=== PATIENT | male | born 1955 | race Caucasian/White ===

== ENCOUNTER → 2019-01-20 | Day surgery (SDC) | payer BC ==
[2019-01-16 09:46] LABS: BASOPHILS % 0.2 % (0.0-1.0); HEMATOCRIT 41.4 % (38.2-49.6); HEMOGLOBIN 13.8 g/dL (14.0-18.0); LYMPHOCYTES # (AUTO) 1.3 (1.0-3.2); LYMPHOCYTES % 25.9 % (18.0-39.1); MEAN CORPUSCULAR HEMOGLOBIN 31.4 pg (28-32); MEAN CORPUSCULAR HGB CONC 33.3 g/dL (31-35); MEAN CORPUSCULAR VOLUME 94.1 fL (81-99); MONOCYTES # (AUTO) 0.4 (0.2-0.8); MONOCYTES % 8.2 % (4.4-11.3); NEUTROPHILS # (AUTO) 3.2 (2.1-6.9); NEUTROPHILS % 65.5 % (38.7-80.0); PLATELET COUNT 208 x10e3/uL (140-360); RED CELL DISTRIBUTION WIDTH 12.3 % (11.7-14.4)
[~2019-01-20] MED LIST: AMBIEN PO; ASPIR 8181 MG; ATORVASTATIN PO; CLOPIDOGREL75 MG PO; FENTANYL CITRATE/PF 100MCG/2 ML INJ ONE; METOPROLOL TART50 MG PO; MIDAZOLAM HCL 2 MG/2 ML VIAL ONE; PROPOFOL IV EMULSION 10 MG/ML 50 ML VIAL ONE; TAMSULOSIN HCL0.4 MG
--- OUTSIDE RECORDS SUMMARY | 2019-01-20 09:09 | XMS REPORT | Summary of Care ---
Author Author [facility] Organization [facility] Address Unknown Phone Unavailable Encounter TAYLOR Guzmán(YISSEL) [id number] Date(s): 07/05/17 - 07/06/17 [facility] [address] [place] [address]- [phone] Discharge Disposition: Home or Self Care Attending Physician: Monika Phan MD Admitting Physician: Monika Phan MD Referring Physician: Yasir Zamarripa MD Vital Signs 1 2 3 Most recent to oldest [Reference Range]: 173.36 cm (07/02/17 9:30 AM) Height 98 DegF (07/06/17 12:00 AM) 98.3 DegF (07/05/17 7:00 PM) 98.7 DegF (07/05/17 4:00 PM) Temperature Oral [96.4-99.1 DegF] 106/61 mmHg (07/06/17 9:00 AM) 123/66 mmHg (07/06/17 8:00 AM) 130/77 mmHg (07/06/17 7:00 AM) Blood Pressure [90-140/60-90 mmHg] 11 BRMIN *LOW* (07/06/17 10:51 AM) 15 BRMIN (07/06/17 10:00 AM) 14 BRMIN (07/06/17 9:00 AM) Respiratory Rate [14-20 BRMIN] 85 bpm (07/05/17 7:20 AM) 76 bpm (07/02/17 9:00 AM) Peripheral Pulse Rate [60-100 bpm] 91 kg (07/06/17 10:56 AM) 90.727 kg (07/02/17 9:30 AM) Weight 30.19 m2 (07/02/17 9:30 AM) Body Mass Index Problem List Condition Effective Dates Status Health Status Informant CAD (coronary artery Active disease)(Confirmed) Chest Active pain(Confirmed) Shortness of Active breath(Confirmed) HTN Active (hypertension)(Confi rmed) Arthritis(Confirmed) Active Enlarged Active prostate(Confirmed) Sleep Active apnea(Confirmed) Allergies, Adverse Reactions, Alerts Substance Reaction Severity Status finasteride Active Medications acetaminophen 650 mg, 2 tab, Route: PO, Drug form: TAB, Q4H, Dosing Weight 90.727, kg, PRN [place] 1-3/Temp > 100.4 F, Start date: 07/05/17 10:01:00 CDT, Duration: 30 day, Stop date: 08/04/17 10:00:00 CDT Notes: Do not exceed 4 gm/day. (Same as: Tylenol) Start Date: 07/05/17 Stop Date: 07/05/17 Status: Discontinued acetaminophen-hydrocodone 325 mg-5 mg oral tablet 1 tab, PO, Q4-6H, PRN Pain, X 5 day, # 24 tab, 0 Refill(s), given to patient Start Date: 07/06/17 Stop Date: 07/11/17 Status: Ordered acetaminophen-hydrocodone 325 mg-5 mg oral tablet 2 tab, Route: PO, Drug Form: TAB, Dosing Weight 90.727, kg, Q4H, PRN Pain Score 4-6, Start date: 07/05/17 10:01:00 CDT, Duration: 30 day, Stop date: 08/04/17 10 :00:00 CDT Notes: (Same as: [place] 325/5) Do not exceed 4gm/day of acetaminophen. Start Date: 07/05/17 Stop Date: 07/06/17 Status: Discontinued acetaminophen-hydrocodone 325 mg-5 mg oral tablet 1 tab, Route: PO, Drug Form: TAB, Dosing Weight 90.727, kg, Q4H, PRN Pain Score 1-3, Start date: 07/05/17 10:01:00 CDT, Duration: 30 day, Stop date: 08/04/17 10 :00:00 CDT Notes: (Same as: [place] 325/5) Do not exceed 4gm/day of acetaminophen. Start Date: 07/05/17 Stop Date: 07/06/17 Status: Discontinued aspirin 81 mg tablet, enteric coated 81 mg, 1 tab, Route: PO, Drug form: ECTAB, Daily, Dosing Weight 90.727, kg, Star t date: 07/06/17 9:00:00 CDT, Duration: 30 day, Stop date: 08/04/17 9:00:00 CDT Notes: Do not crush or chew.(Same As: Ecotrin) Start Date: 07/06/17 Stop Date: 07/06/17 Status: Discontinued atorvastatin 40 mg, 1 tab, Route: PO, Drug form: TAB, Bedtime, Dosing Weight 90.727, kg, Star t date: 07/05/17 21:00:00 CDT, Duration: 30 day, Stop date: 08/03/17 21:00:00 CD T Notes: (Same as: Lipitor) Start Date: 07/05/17 Stop Date: 07/06/17 Status: Discontinued Brilinta (ticagrelor) 90 mg, 1 tab, Route: PO, Drug form: TAB, BID, Dosing Weight 90.727, kg, Start da te: 07/05/17 17:00:00 CDT, Duration: 30 day, Stop date: 08/04/17 9:00:00 CDT Notes: (Same as: Brilinta) Start Date: 07/05/17 Stop Date: 07/06/17 Status: Discontinued Brilinta (ticagrelor) 90 mg oral tablet 90 mg=1 tab, PO, BID, 0 Refill(s) Start Date: 07/02/17 Status: Ordered calcium carbonate 500 mg (200 mg elemental calcium) oral tablet 500 mg, 1 tab, Route: PO, Drug form: CHEWTAB, PRN, Dosing Weight 90.727, kg, PRN Abnormal Lab Result, FOR ICU USE ONLY, Start date: 07/05/17 16:40:00 CDT, Durat ion: 30 day, Stop date: 08/04/17 16:39:00 CDT Notes: (Same As: Tums)Calcium Carbonate 500 zp=413 mg elemental calcium Dose=_ mg calcium carbonate ( mg elemental calcium) Start Date: 07/05/17 Stop Date: 07/06/17 Status: Discontinued calcium carbonate 500 mg (200 mg elemental calcium) oral tablet 1,000 mg, 2 tab, Route: PO, Drug form: CHEWTAB, PRN, Dosing Weight 90.727, kg, P RN Abnormal Lab Result, FOR ICU USE ONLY, Start date: 07/05/17 16:40:00 CDT, Dur ation: 30 day, Stop date: 08/04/17 16:39:00 CDT Notes: (Same As: Tums)Calcium Carbonate 500 aq=879 mg elemental calcium Dose=_ mg calcium carbonate ( mg elemental calcium) Start Date: 07/05/17 Stop Date: 07/06/17 Status: Discontinued calcium gluconate + sodium chloride 0.9% INJ 50 mL 1 gm, 10 mL, Route: IVPB, PRN, Dosing Weight 90.727, kg, PRN Abnormal Lab Result , Start date: 07/05/17 16:40:00 CDT, Duration: 30 day, Stop date: 08/04/17 16:39 :00 CDT, FOR ICU USE ONLY Notes: WASTE: F/P - Sink; E - Municipal Trash Bin Start Date: 07/05/17 Stop Date: 07/06/17 Status: Discontinued ceFAZolin (ANES) Route: IV, Drug form: INJ, ONCE, Stop date: 07/05/17 9:12:00 CDT Start Date: 07/05/17 Stop Date: 07/05/17 Status: Completed ceFAZolin (SCIP) + sodium chloride 0.9% 100 mL INJ (for IV set) 100 mL 2 gm, Route: IVPB, Q8H, Dosing Weight 90.727, kg, Start date: 07/05/17 16:00:00 CDT, Duration: 3 doses or times, Stop date: 07/06/17 8:00:00 CDT, ABX Indication : Surgical Prophylaxis Notes: (Same As: Anctimur, Wingfzol) MEDICATION WASTE Product Size: 1000 mgP roduct Wasted: ___ mg Start Date: 07/05/17 Stop Date: 07/06/17 Status: Completed Cepacol Sore Throat Chau Sugar Free 15 mg-3.6 mg mucous membrane lozenge 1 lozenge, Route: MUCOUS MEM, Drug Form: NICKO, Dosing Weight 90.727, kg, Q2H, PRN Sore Throat, Start date: 07/05/17 11:10:00 CDT, Duration: 30 day, Stop date: 11:09:00 CDT Notes: Same as: Cepacol Start Date: 07/05/17 Stop Date: 07/06/17 Status: Discontinued fentaNYL (ANES) Route: IV, Drug form: INJ, ONCE, Stop date: 07/05/17 9:12:00 CDT Start Date: 07/05/17 Stop Date: 07/05/17 Status: Completed heparin (ANES) Route: IV, Drug form: INJ, ONCE, Stop date: 07/05/17 10:00:00 CDT Start Date: 07/05/17 Stop Date: 07/05/17 Status: Completed hydrALAZINE 10 mg, 0.5 mL, Route: IVP, Drug form: INJ, Q4H, Dosing Weight 90.727, kg, PRN Hy pertension, Start date: 07/05/17 11:10:00 CDT, Duration: 30 day, Stop date: 07/26 11:09:00 CDT Notes: (Same as: Apresoline)Push over 5 minutes Start Date: 07/05/17 Stop Date: 07/06/17 Status: Discontinued ketOROLAC (ANES) IV, ONCE Start Date: 07/05/17 Stop Date: 07/05/17 Status: Completed Lactated Ringers 1,000 mL 1,000 mL, Rate: 50 ml/hr, Infuse over: 20 hr, Route: IV, Dosing Weight 90.727 kg , Total Volume: 1,000, Start date: 07/05/17 10:01:00 CDT, Duration: 30 day, Stop date: 08/04/17 10:00:00 CDT Start Date: 07/05/17 Stop Date: 07/06/17 Status: Discontinued Lactated Ringers 1,000 mL 1,000 mL, Rate: 25 ml/hr, Infuse over: 40 hr, Route: IV, Dosing Weight 90.727 kg , Total Volume: 1,000, Start date: 07/05/17 7:28:00 CDT, Duration: 30 day, Stop date: 08/04/17 7:27:00 CDT Start Date: 07/05/17 Stop Date: 07/05/17 Status: Discontinued lidocaine (ANES) Route: IV, Drug form: INJ, ONCE, Stop date: 07/05/17 9:12:00 CDT Start Date: 07/05/17 Stop Date: 07/05/17 Status: Completed LR 1000 mL INJ (ANES) Route: IV, Total Volume: 1,000, Start date: 07/05/17 8:12:00 CDT, Stop date: 10/11 9:12:00 CDT Start Date: 07/05/17 Stop Date: 07/05/17 Status: Completed magnesium oxide 800 mg, 2 tab, Route: PO, Drug form: TAB, PRN, Dosing Weight 90.727, kg, PRN Abn ormal Lab Result, FOR ICU USE ONLY, Start date: 07/05/17 16:40:00 CDT, Duration: 30 day, Stop date: 08/04/17 16:39:00 CDT Notes: (Same as: Mag-Ox 400)Magnesium oxide [id number] elemental magnesiumDose= ____mg magnesium oxide (___mg elemental magnesium) Start Date: 07/05/17 Stop Date: 07/06/17 Status: Discontinued magnesium sulfate 2 gm, 50 mL, Route: IVPB, Drug form: INJ, PRN, Dosing Weight 90.727, kg, PRN Abn ormal Lab Result, Start date: 07/05/17 16:40:00 CDT, Duration: 30 day, Stop date : 08/04/17 16:39:00 CDT, FOR ICU USE ONLY Notes: WASTE: F/P - Sink; E - Municipal Trash Bin Start Date: 07/05/17 Stop Date: 07/06/17 Status: Discontinued midazolam (ANES) Route: IV, Drug form: SOLN, ONCE, Stop date: 07/05/17 8:47:00 CDT Start Date: 07/05/17 Stop Date: 07/05/17 Status: Completed morphine Sulfate 4 mg, 1 mL, Route: IVP, Drug form: INJ, Q4H, Dosing Weight 90.727, kg, PRN Pain Score 7-10, Start date: 07/05/17 10:01:00 CDT, Duration: 30 day, Stop date: 07/26 10:00:00 CDT Notes: (Same as:MORPhine Sulfate) Start Date: 07/05/17 Stop Date: 07/06/17 Status: Discontinued morphine Sulfate 2 mg, 1 mL, Route: IVP, Drug form: INJ, Q2H, Dosing Weight 90.727, kg, PRN Pain Score 4-6, Start date: 07/05/17 10:01:00 CDT, Duration: 30 day, Stop date: 08/04 10:00:00 CDT Notes: (Same as:MORPhine Sulfate) Start Date: 07/05/17 Stop Date: 07/06/17 Status: Discontinued multivitamin 1 tab, Route: PO, Drug Form: TAB, Dosing Weight 90.727, kg, Daily, Start date: 0 07/06/17 9:00:00 CDT, Duration: 30 day, Stop date: 08/04/17 9:00:00 CDT Notes: (Same as:One Tab Daily, Tab-A-Nellie + Beta Carotene) Give with food. Start Date: 07/06/17 Stop Date: 07/06/17 Status: Discontinued mupirocin topical 1 appl, Route: NASAL, Q12H, Drug form: OINT, Start date: 07/05/17 21:00:00 CDT, Duration: 5 day, Stop date: 07/10/17 9:00:00 CDT, MRSA Decolonization Start Date: 07/05/17 Stop Date: 07/06/17 Status: Discontinued ondansetron 4 mg, 2 mL, Route: IVP, Drug form: INJ, Q8H, Dosing Weight 90.727, kg, PRN Nause a & Vomiting, Start date: 07/05/17 10:01:00 CDT, Duration: 30 day, Stop date: 08/04/17 10:00:00 CDT Notes: (Same as: Betito) MEDICATION WASTE Product Size: 4 mgProduct Was eliza: ___ mg Start Date: 07/05/17 Stop Date: 07/06/17 Status: Discontinued ondansetron (ANES) Route: IV, Drug form: INJ, ONCE, Stop date: 07/05/17 9:17:00 CDT Start Date: 07/05/17 Stop Date: 07/05/17 Status: Completed potassium chloride 20 mEq, 15 mL, Route: NJ, Drug form: LIQ, PRN, Dosing Weight 90.727, kg, PRN Abn ormal Lab Result, Start date: 07/05/17 16:40:00 CDT, Duration: 30 day, Stop date : 08/04/17 16:39:00 CDT, FOR ICU USE ONLY Notes: (Same as: Potassium Chloride) Start Date: 07/05/17 Stop Date: 07/06/17 Status: Discontinued potassium chloride 20 mEq, 1 tab, Route: PO, Drug form: ERTAB, PRN, Dosing Weight 90.727, kg, PRN A bnormal Lab Result, Start date: 07/05/17 16:40:00 CDT, Duration: 30 day, Stop da te: 08/04/17 16:39:00 CDT, FOR ICU USE ONLY Notes: (Same as: K-Dur 20)"Do Not Crush" With food and full glass of water Start Date: 07/05/17 Stop Date: 07/06/17 Status: Discontinued potassium chloride 10 mEq, 100 mL, Route: IVPB, Drug form: INJ, PRN, Dosing Weight 90.727, kg, PRN Abnormal Lab Result, Via peripheral line, Start date: 07/05/17 16:40:00 CDT, Dur ation: 30 day, Stop date: 08/04/17 16:39:00 CDT, FOR ICU USE ONLY Notes: Infuse at a rate of 10 mEq/hr.(Same as: KCL) Start Date: 07/05/17 Stop Date: 07/06/17 Status: Discontinued potassium chloride 20 mEq, 100 mL, Route: IVPB, Drug form: INJ, PRN, Dosing Weight 90.727, kg, PRN Abnormal Lab Result, Via central line, Start date: 07/05/17 16:40:00 CDT, Durati on: 30 day, Stop date: 08/04/17 16:39:00 CDT, FOR ICU USE ONLY Notes: (Same as: KCL) Infuse no faster than 10 mEq/hr if given peripherally. Start Date: 07/05/17 Stop Date: 07/06/17 Status: Discontinued potassium phosphate + sodium chloride 0.9% INJ 250 mL 30 mmol, 10 mL, Route: IVPB, PRN, Dosing Weight 90.727, kg, PRN Abnormal Lab Res ult, Start date: 07/05/17 16:40:00 CDT, Duration: 30 day, Stop date: 08/04/17 16 :39:00 CDT, FOR ICU USE ONLY Notes: (Same as: K Phosphate.) 1 mMol phoshate has 1.47 mEq potassium Infuse o mi 4 hours Start Date: 07/05/17 Stop Date: 07/06/17 Status: Discontinued potassium phosphate + sodium chloride 0.9% INJ 250 mL 45 mmol, 15 mL, Route: IVPB, PRN, Dosing Weight 90.727, kg, PRN Abnormal Lab Res ult, Start date: 07/05/17 16:40:00 CDT, Duration: 30 day, Stop date: 08/04/17 16 :39:00 CDT, FOR ICU USE ONLY Notes: (Same as: K Phosphate.) 1 mMol phoshate has 1.47 mEq potassium Infuse o mi 4 hours Start Date: 07/05/17 Stop Date: 07/06/17 Status: Discontinued potassium phosphate + sodium chloride 0.9% INJ 250 mL 15 mmol, 5 mL, Route: IVPB, PRN, Dosing Weight 90.727, kg, PRN Abnormal Lab Resu lt, Start date: 07/05/17 16:40:00 CDT, Duration: 30 day, Stop date: 08/04/17 16: 39:00 CDT, FOR ICU USE ONLY Notes: (Same as: K Phosphate.) 1 mMol phoshate has 1.47 mEq potassium Infuse o mi 4 hours Start Date: 07/05/17 Stop Date: 07/06/17 Status: Discontinued potassium phosphate-sodium phosphate 250 mg-280 mg-160 mg oral powder for recons titution 2 pkt, Route: PO, Drug Form: PDR/REC, Dosing Weight 90.727, kg, PRN, PRN Abnorma l Lab Result, FOR ICU USE ONLY, Start date: 07/05/17 16:40:00 CDT, Duration: 30 day, Stop date: 08/04/17 16:39:00 CDT Notes: (Same as: Phos-NaK) Each 1.5 gm pkt has 250mg phosphorous. Mix w/2.5oz w ater and stir. Start Date: 07/05/17 Stop Date: 07/06/17 Status: Discontinued propofol (ANES) Route: IV, Drug form: INJ, ONCE, Stop date: 07/05/17 9:12:00 CDT Start Date: 07/05/17 Stop Date: 07/05/17 Status: Completed rocuronium (ANES) Route: IV, Drug form: INJ, ONCE, Stop date: 07/05/17 9:12:00 CDT Start Date: 07/05/17 Stop Date: 07/05/17 Status: Completed Saline Flush 0.9% 10 ml, Route: IVP, Drug Form: INJ, Dosing Weight 90.727, kg, PRN, PRN Line Flush , Start date: 07/05/17 11:09:00 CDT, Duration: 30 day, Stop date: 08/04/17 11:08 :00 CDT Notes: Same as: BD Posiflush Sterile Start Date: 07/05/17 Stop Date: 07/06/17 Status: Discontinued Saline Flush 0.9% 10 ml, Route: IVP, Drug Form: INJ, Dosing Weight 90.727, kg, Q12H, Start date: 0 07/05/17 21:00:00 CDT, Duration: 30 day, Stop date: 08/04/17 9:00:00 CDT Notes: Same as: BD Posiflush Sterile Start Date: 07/05/17 Stop Date: 07/06/17 Status: Discontinued sodium phosphate + sodium chloride 0.9% INJ 250 mL 30 mmol, 10 mL, Route: IVPB, PRN, Dosing Weight 90.727, kg, PRN Abnormal Lab Res ult, Start date: 07/05/17 16:40:00 CDT, Duration: 30 day, Stop date: 08/04/17 16 :39:00 CDT, FOR ICU USE ONLY Start Date: 07/05/17 Stop Date: 07/06/17 Status: Discontinued sodium phosphate + sodium chloride 0.9% INJ 250 mL 15 mmol, 5 mL, Route: IVPB, PRN, Dosing Weight 90.727, kg, PRN Abnormal Lab Resu lt, Start date: 07/05/17 16:40:00 CDT, Duration: 30 day, Stop date: 08/04/17 16: 39:00 CDT, FOR ICU USE ONLY Start Date: 07/05/17 Stop Date: 07/06/17 Status: Discontinued sodium phosphate + sodium chloride 0.9% INJ 250 mL 45 mmol, 15 mL, Route: IVPB, PRN, Dosing Weight 90.727, kg, PRN Abnormal Lab Res ult, Start date: 07/05/17 16:40:00 CDT, Duration: 30 day, Stop date: 08/04/17 16 :39:00 CDT, FOR ICU USE ONLY Start Date: 07/05/17 Stop Date: 07/06/17 Status: Discontinued tamsulosin 0.4 mg, 1 cap, Route: PO, Drug form: CAP, Daily, Dosing Weight 90.727, kg, Start date: 07/06/17 9:00:00 CDT, Duration: 30 day, Stop date: 08/04/17 9:00:00 CDT Notes: (Same As: Flomax) "Do Not Crush" Start Date: 07/06/17 Stop Date: 07/06/17 Status: Discontinued Tessalon Perles 200 mg, 2 cap, Route: PO, Drug form: CAP, TID, Dosing Weight 90.727, kg, PRN Cou gh, Start date: 07/05/17 11:10:00 CDT, Duration: 30 day, Stop date: 08/04/17 11: 09:00 CDT Notes: (Same As: Tessalon Perles)"Do Not Crush" Start Date: 07/05/17 Stop Date: 07/06/17 Status: Discontinued Toprol-XL 50 mg oral tablet, extended release 50 mg, 1 tab, Route: PO, Drug form: ERTAB, Daily, Start date: 07/06/17 9:00:00 C DT, Duration: 30 day, Stop date: 08/04/17 9:00:00 CDT Notes: (Same as: Toprol XL) May split tab, but do not crush. Start Date: 07/06/17 Stop Date: 07/06/17 Status: Discontinued Tylenol 650 mg, Route: PO, Drug form: TAB, Q6H, Dosing Weight 90.727, kg, PRN Pain Score 1-3, Start date: 07/05/17 11:10:00 CDT, Duration: 30 day, Stop date: 08/04/17 1 1:09:00 CDT Start Date: 07/05/17 Stop Date: 07/05/17 Status: Deleted Tylenol 650 mg, 2 tab, Route: PO, Drug form: TAB, Q6H, Dosing Weight 90.727, kg, PRN For Temp > 100.4 F, Start date: 07/05/17 11:10:00 CDT, Duration: 30 day, Stop date: 08/04/17 11:09:00 CDT Notes: Do not exceed 4 gm/day. (Same as: Tylenol) Start Date: 07/05/17 Stop Date: 07/06/17 Status: Discontinued Results BLOOD BANK RESULTS Most recent to 1 2 oldest [Reference Range]: ABO/Rh A POS *Unknown* (07/02/17 9:41 AM) Antibody Scrn Negative (07/02/17 9:41 AM) ELECTROLYTES Most recent to 1 2 oldest [Reference Range]: Sodium Lvl [135-145 142 mEq/L 141 mEq/L mEq/L] (07/06/17 5:04 AM) (07/02/17 9:38 AM) Potassium Lvl 4.1 mEq/L 4.0 mEq/L [3.5-5.1 mEq/L] (07/06/17 5:04 AM) (07/02/17 9:38 AM) Chloride Lvl [95-109 109 mEq/L 106 mEq/L mEq/L] (07/06/17 5:04 AM) (07/02/17 9:38 AM) CO2 [24-32 mEq/L] 29 mEq/L 30 mEq/L (07/06/17 5:04 AM) (07/02/17 9:38 AM) AGAP [10.0-20.0 8.1 mEq/L 9.0 mEq/L mEq/L] *LOW* *LOW* (07/06/17 5:04 AM) (07/02/17 9:38 AM) CHEM PANEL Most recent to 1 2 oldest [Reference Range]: Creatinine Lvl 1.06 mg/dL 0.96 mg/dL [0.50-1.40 mg/dL] (07/06/17 5:04 AM) (07/02/17 9:38 AM) eGFR 76 mL/min/1.73m2 1 85 mL/min/1.73m2 2 *NA* *NA* (07/06/17 5:04 AM) (07/02/17 9:38 AM) BUN [7-22 mg/dL] 11 mg/dL 11 mg/dL (07/06/17 5:04 AM) (07/02/17 9:38 AM) Glucose Lvl [70-99 90 mg/dL 89 mg/dL mg/dL] (07/06/17 5:04 AM) (07/02/17 9:38 AM) Calcium Lvl 8.5 mg/dL 8.6 mg/dL [8.5-10.5 mg/dL] (07/06/17 5:04 AM) (07/02/17 9:38 AM) Phosphorus [2.5-4.5 3.2 mg/dL mg/dL] (07/06/17 5:04 AM) Magnesium Lvl 2.2 mg/dL [1.8-2.4 mg/dL] (07/06/17 5:04 AM) 1Result Comment: The eGFR is calculated using the CKD-EPI formula. In most young, healthy individuals the eGFR will be >90 mL/min/1.73m2. The eGFR declines with age. An eGFR of 60-89 may be normal in some populations, particularly the elderly, for whom the CKD-EPI formula has not been extensively validated. Use of the eGFR is not recommended in the following populations: Individuals with unstable creatinine concentrations, including patients and those with serious co-morbid conditions. Patients with extremes in muscle mass or diet. The data above are obtained from the National Kidney Disease Education Program ( NKDEP) which additionally recommends that when the eGFR is used in patients with extremes of body mass index for purposes of drug dosing, the eGFR should be mul tiplied by the estimated BMI. 2Result Comment: The eGFR is calculated using the CKD-EPI formula. In most young, healthy individuals the eGFR will be >90 mL/min/1.73m2. The eGFR declines with age. An eGFR of 60-89 may be normal in some populations, particularly the elderly, for whom the CKD-EPI formula has not been extensively validated. Use of the eGFR is not recommended in the following populations: Individuals with unstable creatinine concentrations, including patients and those with serious co-morbid conditions. Patients with extremes in muscle mass or diet. The data above are obtained from the National Kidney Disease Education Program ( NKDEP) which additionally recommends that when the eGFR is used in patients with extremes of body mass index for purposes of drug dosing, the eGFR should be mul tiplied by the estimated BMI. HEMATOLOGY Most recent to 1 2 oldest [Reference Range]: WBC [3.7-10.4 K/CMM] 8.9 K/CMM 6.1 K/CMM (07/06/17 5:04 AM) (07/02/17 9:38 AM) RBC [4.70-6.10 4.10 M/CMM 4.55 M/CMM M/CMM] *LOW* *LOW* (07/06/17 5:04 AM) (07/02/17:38 AM) Hgb [14.0-18.0 g/dL] 12.5 g/dL 14.0 g/dL *LOW* (07/02/17:38 AM) (07/06/17 5:04 AM) Hct [42.0-54.0 %] 37.4 % 41.6 % *LOW* *LOW* (07/06/17 5:04 AM) (07/02/17:38 AM) MCV [80.0-94.0 fL] 91.1 fL 91.4 fL (07/06/17 5:04 AM) (07/02/17:38 AM) MCH [27.0-31.0 pg] 30.4 pg 30.8 pg (07/06/17 5:04 AM) (07/02/17:38 AM) MCHC [32.0-36.0 33.4 g/dL 33.7 g/dL g/dL] (07/06/17 5:04 AM) (07/02/17:38 AM) RDW [11.5-14.5 %] 14.3 % 14.5 % (07/06/17 5:04 AM) (07/02/17 9:38 AM) Platelet [133-450 175 K/CMM 187 K/CMM K/CMM] (07/06/17 5:04 AM) (07/02/17 9:38 AM) MPV [7.4-10.4 fL] 8.6 fL 8.8 fL (07/06/17 5:04 AM) (07/02/17 9:38 AM) Segs [45.0-75.0 %] 71.3 % 68.6 % (07/06/17 5:04 AM) (07/02/17 9:38 AM) Lymphocytes 18.6 % 21.9 % [20.0-40.0 %] *LOW* (07/02/17 9:38 AM) (07/06/17 5:04 AM) Monocytes [2.0-12.0 8.0 % 6.3 % %] (07/06/17 5:04 AM) (07/02/17 9:38 AM) Eosinophils [0.0-4.0 2.0 % 3.1 % %] (07/06/17 5:04 AM) (07/02/17 9:38 AM) Basophils [0.0-1.0 0.1 % 0.1 % %] (07/06/17 5:04 AM) (07/02/17 9:38 AM) Segs-Bands # 6.4 K/CMM 4.2 K/CMM [1.5-8.1 K/CMM] (07/06/17 5:04 AM) (07/02/17 9:38 AM) Lymphocytes # 1.7 K/CMM 1.3 K/CMM [1.0-5.5 K/CMM] (07/06/17 5:04 AM) (07/02/17 9:38 AM) Monocytes # [0.0-0.8 0.7 K/CMM 0.4 K/CMM K/CMM] (07/06/17 5:04 AM) (07/02/17 9:38 AM) Eosinophils # 0.2 K/CMM 0.2 K/CMM [0.0-0.5 K/CMM] (07/06/17 5:04 AM) (07/02/17 9:38 AM) PT [12.0-14.7 12.6 seconds seconds] (07/02/17 9:38 AM) INR [0.85-1.17] 0.92 (07/02/17 9:38 AM) PTT [22.9-35.8 45.3 seconds seconds] *HI* (07/02/17 9:38 AM) Immunizations No data available for this section Procedures Procedure Date Related Diagnosis Body Site Cardiac catheterization 2016 Arthroscopic knee procedure1 11/25/07 1left knee Social History Social History Type Response Substance Abuse Use: None. Employment/School Status: Employed. Alcohol Never, Previous treatment: None. Smoking Status Never smoker; Exposure to Tobacco Smoke None; Cigarette Smoking Last 365 Days No; Reg Smoking Cessation Counseling Yes Assessment and Plan Extracted from: Title: ICU Progress Note Author: Shun Mccallum OCC MED PHYSICIAN Date: 07/06/17 Patient: FLOR REN Age: 61 years Sex: Male : 1955 Associated Diagnoses: None Author: Shun Mccallum OCC MED PHYSICIAN Basic Information ICU Day 2 He remained hemodynamically stable overnight, no sob or distress, no c/o chest pain. He has c/o incisional site pain, controlled with prn pain medications, no obvious signs of bleeding or hematoma noted, palpable pedal pulses. Review of Systems Constitutional: No fever, No chills. Respiratory: No shortness of breath, No cough, No sputum production, No wheezing. Cardiovascular: No chest pain, No palpitations, No bradycardia, No tachycardia, No peripheral edema. Gastrointestinal: No nausea, No vomiting, No diarrhea. Integumentary: Negative except as documented in history of present illness. Neurologic: Alert and oriented X4. Health Status Allergies: Allergic Reactions (All) Severity Not Documented Finasteride- No reactions were documented. Current medications: Medications reviewed. Problem list: 1.Right femoral artery aneurysm repair,POD #1 2.Rt. femoral artery aneurysm 3.CAD 4.HTN,Hyperlipidemia 5.BPH Physical Examination Intake and Output I/O Intake OutputBalance 07/06/20177a-3p 110.00 0.00 110.00As of 11:07 3p-11p 0.00 0.00 0.00 11p-7a 0.00 0.00 0.00 Totals 110.00 0.00 110.00 07/05/20177a-3p 1617.33 50.00 1567.33 3p-11p 813.33 950.00 -136.67 11p-7a 496.67 200.00 296.67 Totals 2927.33 1200.00 1727.33 07/04/20177a-3p 0.00 0.00 0.00 3p-11p 0.00 0.00 0.00 11p-7a 0.00 0.00 0.00 Totals 0.00 0.00 0.00 VS/Measurements Vital Signs (last 24 hrs) Last Charted Temp Oral98 DegF (JUL 06 00:00) Heart Rate Onywjy66 bpm (JUL 06 10:51) Resp Rate L 11BRMIN (JUL 06 10:51) QEM703 mmHg (JUL 06 09:00) DBP61 mmHg (JUL 06 09:00) CzU868 % (JUL 06 10:00) Pbbgmb89 kg (JUL 06 10:56) , Measurements from flowsheet : Measurements 07/06/2017 10:56 Heparin Dosing Weight (kg) 77.79 07/06/2017 10:56 Weight 91 kg Dosing Weight Difference Percent 0.301 % Dosing Weight Collection Method Measured General: Alert and oriented, No acute distress. Eye: Pupils are equal, round and reactive to light. HENT: Normocephalic, Oral mucosa is moist. Neck: Supple, No jugular venous distention. Respiratory: Respirations are non-labored, Breath sounds are equal, Symmetrical chest wall expansion. Cardiovascular: Normal rate, Regular rhythm, S1, S2, Good pulses equal in all extremities, No edema. Gastrointestinal: Soft, Non-distended, Normal bowel sounds. Musculoskeletal No swelling. Integumentary: Warm, Moist. Neurologic: Alert, Oriented, Normal sensory, Normal motor function. Psychiatric: Cooperative, Appropriate mood & affect. Review / Management Results review: Labs (Last four charted values) WBC 8.9(JUL 06)6.1(JUL 02) Hgb L 12.5(JUL 06)14.0(JUL 02) Hct L 37.4(JUL 06)L 41.6(JUL 02) Plt 175(JUL 06)187(JUL 02) Na 142(JUL 06)141(JUL 02) K 4.1(JUL 06)4.0(JUL 02) CO2 29(JUL 06)30(JUL 02) Cl 109(JUL 06)106(JUL 02) Cr 1.06(JUL 06)0.96(JUL 02) BUN 11(JUL 06)11(JUL 02) Glucose Random 90(JUL 06)89(JUL 02) Mg 2.2(JUL 06) Phos 3.2(JUL 06) Ca 8.5(JUL 06)8.6(JUL 02) PT 12.6(JUL 02) INR 0.92(JUL 02) PTT H 45.3(JUL 02). General Management: Deep vein thrombosis prophylaxis, Gastric ulcer prophylaxis, Head of bed elevated. Impression and Plan -Continue current medical managenment -Post op management as per surgeon -Discharge patient home if ok with surgeon Addendum I personally saw this pt, labs, meds reviewed, discussed treatment plans & agree with by chelsea Phan assessment & plans. Adal Rios MD on 07/06/2017 19:05 Extracted from: Title: ICU Consultation note Author: Shun Mccallum NP Date: 07/05/17 Patient: FLOR REN Age: 61 years Sex: Male : 1955 Associated Diagnoses: None Author: Shun Mccallum NP Basic Information Present at bedside: Family member, Medical personnel. Source of history: Self, Family member, Medical record. History limitation: Clinical condition. Advance directive: Full code. History of Present Illness Mr. 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 Repair of right femoral artery aneurysm was done by Dr. Zamarripa and the patient was transfered to ICU post procedure. Seen the patient in ICU, awake ,alert, oriented, no sob or distress, no c/o chest pain. He has c/o incisional site pain, no obvious signs of bleeding or hematoma, palpable pedal pulses. Review of Systems Constitutional: No fever, No chills. Eye: Negative except as documented in history of present illness. Ear/Nose/Mouth/Throat: Negative except as documented in history of present illness. Respiratory: No shortness of breath, No cough, No sputum production, No wheezing. Cardiovascular: No chest pain, No palpitations, No bradycardia, No tachycardia, No peripheral edema. Gastrointestinal: No nausea, No vomiting, No diarrhea. Genitourinary: Negative except as documented in history of present illness. Hematology/Lymphatics: Negative except as documented in history of present illness. Musculoskeletal: Negative except as documented in history of present illness. Integumentary: Negative except as documented in history of present illness. Neurologic: Alert and oriented X4. Health Status Allergies: Allergic Reactions (All) Severity Not Documented Finasteride- No reactions were documented. Current medications: Medications reviewed. Histories Past Medical History: Active CAD (coronary artery disease) (8376095768) Chest pain (54232742) Shortness of breath (941215914) HTN (hypertension) (2944196701) Arthritis (6144621675) Enlarged prostate (7381886467) Sleep apnea (006263373) Family History: Family history reviewed. Procedure history: Cardiac catheterization ([id number]) in 2016 at 61 Years. Arthroscopic knee procedure ([id number]) on 11/25/2007 at 52 Years. Comments: 01/25/2017 16:00 Nalini Douglas RN left knee Social History Social & Psychosocial Habits Alcohol 01/25/2017 Use: Never Previous treatment: None Employment/School 07/02/2017 Status: Employed Substance Abuse 07/02/2017 Use: None Tobacco 07/02/2017 Use: Never smoker Exposure to Tobacco Smoke None Cigarette Smoking Last 365 Days No Reg Smoking Cessation Counseling Yes . Physical Examination VS/Measurements Vital Signs (last 24 hrs) Last Charted Temp Oral98.7 DegF (JUL 05 10:15) Heart Rate Sttmkd57 bpm (JUL 05 12:00) Resp Rate 14 BRMIN (JUL 05 12:00) ULU096 mmHg (JUL 05 12:00) DBP75 mmHg (JUL 05 12:) YsY7869 % (JUL 05 14:00) General: Alert and oriented, No acute distress. Eye: Pupils are equal, round and reactive to light. HENT: Normocephalic, Oral mucosa is moist. Neck: Supple, No jugular venous distention. Respiratory: Respirations are non-labored, Breath sounds are equal, Symmetrical chest wall expansion. Cardiovascular: Normal rate, Regular rhythm, S1, S2, Good pulses equal in all extremities, No edema. Gastrointestinal: Soft, Non-distended, Normal bowel sounds. Musculoskeletal No swelling. Integumentary: Warm, Moist. Neurologic: Alert, Oriented, Normal sensory. Cognition and Speech: Oriented, Speech clear and coherent. Psychiatric: Cooperative, Appropriate mood & affect. Review / Management Results review: Labs (Last four charted values) WBC 6.1(JUL 02) Hgb 14.0(JUL 02) Hct L 41.6(JUL 02) Plt 187(JUL 02) Na 141(JUL 02) K 4.0(JUL 02) CO2 30(JUL 02) Cl 106(JUL 02) Cr 0.96(JUL 02) BUN 11(JUL 02) Glucose Random 89(JUL 02) Ca 8.6(JUL 02) PT 12.6(JUL 02) INR 0.92(JUL 02) PTT H 45.3(JUL 02) . General Management: Deep vein thrombosis prophylaxis, Gastric ulcer prophylaxis, Head of bed elevated. Impression and Plan 1.Right femoral artery aneurysm repair,POD #0 2.Rt. femoral artery aneurysm 3.CAD 4.HTN,Hyperlipidemia 5.BPH -Admit to ICU -Pain control -Post op management as per surgeon -Restart home medications -Start on po diet -Follow recommendation of consultants -Will closely monitor in ICU Addendum I personally saw this pt on 07/05/2017, labs, meds reviewed, discussed treatment plans & by Sylvester, agree with above assessment & plans. Adal Rios MD on 07/06/2017 07:30
--- OUTSIDE RECORDS SUMMARY | 2019-01-20 09:09 | XMS REPORT | Continuity of Care Document ---
Author Author [facility] Interface Address Unknown Phone Unavailable Problems Problem Status Onset Date Classification Date Reported Comments Source CHRONIC RIGHT FEMORAL PSUEDOANUERYSM Active 06/21/2017 [place] I20.9/R07.9T Active 01/24/2017 [place] [facility] (<span ID="[id number]</span>) Active Problem 07/09/2017 [facility] [place], [place] Chest pain Active Problem 07/09/2017 [facility] [place] [place] Shortness of breath Active Problem 07/09/2017 [facility] [place] [place] HTN (<span ID="[id number]">Confirmed</span>) Active Problem 07/09/2017 [facility] [place] [place] Arthritis Active Problem 07/09/2017 [facility] [place] [place] Enlarged prostate Active Problem 07/09/2017 [facility] [place] [place] Sleep apnea Active Problem 07/09/2017 [facility] [place] [place] ANGINA PECTORIS, UNSPECIFIED Active [facility] ILLNESS, UNSPECIFIED Active [facility] Medications Medication Details Route Status Patient Instructions Ordering Provider Order Date Source Acetaminophen 325 MG / Hydrocodone Bitartrate 5 MG Oral Tablet 1 tab, PO, Q4-6H, PRN Pain, X 5 day, # 24 tab, 0 Refill(s), given to patient Active 07/06/2017 [facility] tamsulosin 0.4 mg, 1 cap, Route: PO, Drug form: CAP, Daily, Dosing Weight 90.727, kg, Start date: 07/06/17 9:00:00 CDT, Duration: 30 day, Stop date: 08/04/17 9:00:00 CDTNotes: (Same As: Flomax) "Do Not Crush" Inactive 07/06/2017 [facility] multivitamin 1 tab, Route: PO, Drug Form: TAB, Dosing Weight 90.727, kg, Daily, Start date: 07/06/17 9:00:00 CDT, Duration: 30 day, Stop date: 08/04/17 9:00:00 CDTNotes: (Same as:One Tab Daily, Tab-A-Nellie + Beta Carotene) Give with food. Inactive 07/06/2017 [facility] 24 HR Metoprolol Tartrate 50 MG Extended Release Tablet [Toprol] 50 mg, 1 tab, Route: PO, Drug form: ERTAB, Daily, Start date: 07/06/17 9:00:00 CDT, Duration: 30 day, Stop date: 08/04/17 9:00:00 CDTNotes: (Same as: Toprol XL) May split tab, but do not crush. Inactive 07/06/2017 [facility] aspirin 81 mg tablet, enteric coated 81 mg, 1 tab, Route: PO, Drug form: ECTAB, Daily, Dosing Weight 90.727, kg, Start date: 07/06/17 9:00:00 CDT, Duration: 30 day, Stop date: 08/04/17 9:00:00 CDTNotes: Do not crush or chew. (Same As: Ecotrin) Inactive 07/06/2017 [facility] Mupirocin 1 appl, Route: NASAL, Q12H, Drug form: OINT, Start date: 07/05/17 21:00:00 CDT, Duration: 5 day, Stop date: 07/10/17 9:00:00 CDT, MRSA Decolonization No Longer Active 07/06/2017 [facility] atorvastatin 40 mg, 1 tab, Route: PO, Drug form: TAB, Bedtime, Dosing Weight 90.727, kg, Start date: 07/05/17 21:00:00 CDT, Duration: 30 day, Stop date: 08/03/17 21:00:00 CDTNotes: (Same as: Lipitor) No Longer Active 07/06/2017 [facility] Saline Flush 0.9% 10 ml, Route: IVP, Drug Form: INJ, Dosing Weight 90.727, kg, Q12H, Start date: 07/05/17 21:00:00 CDT, Duration: 30 day, Stop date: 08/04/17 9:00:00 CDTNotes: Same as: BD Posiflush Sterile No Longer Active 07/06/2017 [facility] Brilinta 90 mg, 1 tab, Route: PO, Drug form: TAB, BID, Dosing Weight 90.727, kg, Start date: 07/05/17 17:00:00 CDT, Duration: 30 day, Stop date: 08/04/17 9:00:00 CDTNotes: (Same as: Brilinta) No Longer Active 07/05/2017 [facility] Calcium Carbonate 500 MG Chewable Tablet 500 mg, 1 tab, Route: PO, Drug form: CHEWTAB, PRN, Dosing Weight 90.727, kg, PRN Abnormal Lab Result, FOR ICU USE ONLY, Start date: 07/05/17 16:40:00 CDT, Duration: 30 day, Stop date: 08/04/17 16:39:00 CDTNotes: (Same As: Tums) Calcium Carbonate 500 hy=544 mg elemental calcium Dose= mg calcium carbonate ( mg elemental calcium) No Longer Active 07/05/2017 [facility] sodium phosphate 30 mmol, 10 mL, Route: IVPB, PRN, Dosing Weight 90.727, kg, PRN Abnormal Lab Result, Start date: 07/05/17 16:40:00 CDT, Duration: 30 day, Stop date: 08/04/17 16:39:00 CDT, FOR ICU USE ONLY No Longer Active 07/05/2017 [facility] Potassium Chloride 20 mEq, 15 mL, Route: NJ, Drug form: LIQ, PRN, Dosing Weight 90.727, kg, PRN Abnormal Lab Result, Start date: 07/05/17 16:40:00 CDT, Duration: 30 day, Stop date: 08/04/17 16:39:00 CDT, FOR ICU USE ONLYNotes: (Same as: Potassium Chloride) No Longer Active 07/05/2017 [facility] Magnesium Sulfate 2 gm, 50 mL, Route: IVPB, Drug form: INJ, PRN, Dosing Weight 90.727, kg, PRN Abnormal Lab Result, Start date: 07/05/17 16:40:00 CDT, Duration: 30 day, Stop date: 08/04/17 16:39:00 CDT, FOR ICU USE ONLYNotes: WASTE: F/P - Sink; E - Municipal Trash Bin No Longer Active 07/05/2017 [facility] Calcium Gluconate 1 gm, 10 mL, Route: IVPB, PRN, Dosing Weight 90.727, kg, PRN Abnormal Lab Result, Start date: 07/05/17 16:40:00 CDT, Duration: 30 day, Stop date: 08/04/17 16:39:00 CDT, FOR ICU USE ONLYNotes: WASTE: F/P - Sink; E - Municipal Trash Bin No Longer Active 07/05/2017 [facility] Magnesium Oxide 800 mg, 2 tab, Route: PO, Drug form: TAB, PRN, Dosing Weight 90.727, kg, PRN Abnormal Lab Result, FOR ICU USE ONLY, Start date: 07/05/17 16:40:00 CDT, Duration: 30 day, Stop date: 08/04/17 16:39:00 C DTNotes: (Same as: Mag-Ox 400) Magnesium oxide [id number] elemental magnesium Dose=____mg magnesium oxide (___mg elemental magnesium) No Longer Active 07/05/2017 [facility] potassium phosphate 30 mmol, 10 mL, Route: IVPB, PRN, Dosing Weight 90.727, kg, PRN Abnormal Lab Result, Start date: 07/05/17 16:40:00 CDT, Duration: 30 day, Stop date: 08/04/17 16:39:00 CDT, FOR ICU USE ONLYNotes: (Same as: K Phosphate.) 1 mMol phoshate has 1.47 mEq potassium Infuse over 4 hours No Longer Active 07/05/2017 [facility] potassium phosphate-sodium phosphate 250 mg-280 mg-160 mg oral powder for reconstitution 2 pkt, Route: PO, Drug Form: PDR/REC, Dosing Weight 90.727, kg, PRN, PRN Abnormal Lab Result, FOR ICU USE ONLY, Start date: 07/05/17 16:40:00 CDT, Duration: 30 day, Stop date: 08/04/17 16:39:00 CDTNotes: (Same as: Phos-NaK) Each 1.5 gm pkt has 250mg phosphorous. Mix w/2.5oz water and stir. No Longer Active 07/05/2017 [facility] Cefazolin 2 gm, Route: IVPB, Q8H, Dosing Weight 90.727, kg, Start date: 07/05/17 16:00:00 CDT, Duration: 3 doses or times, Stop date: 07/06/17 8:00:00 CDT, ABX Indication: Surgical ProphylaxisNotes: (Same As: Anc ef, Kefzol) MEDICATION WASTE Product Size: 1000 mg Product Wasted: ___ mg No Longer Active 07/05/2017 [facility] Hydralazine 10 mg, 0.5 mL, Route: IVP, Drug form: INJ, Q4H, Dosing Weight 90.727, kg, PRN Hypertension, Start date: 07/05/17 11:10:00 CDT, Duration: 30 day, Stop date: 08/04/17 11:09:00 CDTNotes: (Same as: Coco aguilar) Push over 5 minutes No Longer Active 07/05/2017 [facility] Benzocaine 15 MG / Menthol 3.6 MG Lozenge [Cepacol Sore Throat Pain Relief 15/3.6] 1 lozenge, Route: MUCOUS MEM, Drug Form: NICKO, Dosing Weight 90.727, kg, Q2H, PRN Sore Throat, Start date: 07/05/17 11:10:00 CDT, Duration: 30 day, Stop date: 08/04/17 11:09:00 CDTNotes: Same as: Cepacol No Longer Active 07/05/2017 [facility] Tylenol 650 mg, Route: PO, Drug form: TAB, Q6H, Dosing Weight 90.727, kg, PRN Pain Score 1-3, Start date: 07/05/17 11:10:00 CDT, Duration: 30 day, Stop date: 08/04/17 11:09:00 CDT Inactive 07/05/2017 [facility] Tessalon Perles 200 mg, 2 cap, Route: PO, Drug form: CAP, TID, Dosing Weight 90.727, kg, PRN Cough, Start date: 07/05/17 11:10:00 CDT, Duration: 30 day, Stop date: 08/04/17 11:09:00 CDTNotes: (Same As: Tessalon Jw es) "Do Not Crush" No Longer Active 07/05/2017 [facility] Saline Flush 0.9% 10 ml, Route: IVP, Drug Form: INJ, Dosing Weight 90.727, kg, PRN, PRN Line Flush, Start date: 07/05/17 11:09:00 CDT, Duration: 30 day, Stop date: 08/04/17 11:08:00 CDTNotes: Same as: BD Posiflush Sterile No Longer Active 07/05/2017 [facility] ketOROLAC (ANES) IV, ONCE Inactive 07/05/2017 [facility] Ondansetron 4 mg, 2 mL, Route: IVP, Drug form: INJ, Q8H, Dosing Weight 90.727, kg, PRN Nausea & Vomiting, Start date: 07/05/17 10:01:00 CDT, Duration: 30 day, Stop date: 08/04/17 10:00:00 CDTNotes: (Same as: Betito) MEDICATION WASTE Product Size: 4 mg Product Wasted: ___ mg No Longer Active 07/05/2017 [facility] Morphine 4 mg, 1 mL, Route: IVP, Drug form: INJ, Q4H, Dosing Weight 90.727, kg, PRN Pain Score 7-10, Start date: 07/05/17 10:01:00 CDT, Duration: 30 day, Stop date: 08/04/17 10:00:00 CDTNotes: (Same as:MORPhine Sulfate) No Longer Active 07/05/2017 [facility] Acetaminophen 325 MG / Hydrocodone Bitartrate 5 MG Oral Tablet 2 tab, Route: PO, Drug Form: TAB, Dosing Weight 90.727, kg, Q4H, PRN Pain Score 4-6, Start date: 07/05/17 10:01:00 CDT, Duration: 30 day, Stop date: 08/04/17 10:00:00 CDTNotes: (Same as: [place] 325/5) Do not exceed 4gm/day of acetaminophen. No Longer Active 07/05/2017 [facility] Acetaminophen 650 mg, 2 tab, Route: PO, Drug form: TAB, Q4H, Dosing Weight 90.727, kg, PRN Pain 1-3/Temp > 100.4 F, Start date: 07/05/17 10:01:00 CDT, Duration: 30 day, Stop date: 08/04/17 10:00:00 CDTNotes: Do not exceed 4 gm/day. (Same as: Tylenol) Inactive 07/05/2017 [facility] Calcium Chloride 0.0014 MEQ/ML / Potassium Chloride 0.004 MEQ/ML / Sodium Chloride 0.103 MEQ/ML / Sodium Lactate 0.028 MEQ/ML Injectable Solution 1,000 mL, Rate: 50 ml/hr, Infuse over: 20 hr, Route: IV, Dosing Weight 90.727 kg, Total Volume: 1,000, Start date: 07/05/17 10:01:00 CDT, Duration: 30 day, Stop date: 08/04/17 10:00:00 CDT No Longer Active 07/05/2017 [facility] heparin (ANES) Route: IV, Drug form: INJ, ONCE, Stop date: 07/05/17 10:00:00 CDT Inactive 07/05/2017 [facility] ondansetron (ANES) Route: IV, Drug form: INJ, ONCE, Stop date: 07/05/17 9:17:00 CDT Inactive 07/05/2017 [facility] rocuronium (ANES) Route: IV, Drug form: INJ, ONCE, Stop date: 07/05/17 9:12:00 CDT Inactive 07/05/2017 [facility] propofol (ANES) Route: IV, Drug form: INJ, ONCE, Stop date: 07/05/17 9:12:00 CDT Inactive 07/05/2017 [facility] fentaNYL (ANES) Route: IV, Drug form: INJ, ONCE, Stop date: 07/05/17 9:12:00 CDT Inactive 07/05/2017 [facility] lidocaine (ANES) Route: IV, Drug form: INJ, ONCE, Stop date: 07/05/17 9:12:00 CDT Inactive 07/05/2017 [facility] ceFAZolin (ANES) Route: IV, Drug form: INJ, ONCE, Stop date: 07/05/17 9:12:00 CDT Inactive 07/05/2017 [facility] midazolam (ANES) Route: IV, Drug form: SOLN, ONCE, Stop date: 07/05/17 8:47:00 CDT Inactive 07/05/2017 [facility] LR 1000 mL INJ (ANES) Route: IV, Total Volume: 1,000, Start date: 07/05/17 8:12:00 CDT, Stop date: 07/05/17 9:12:00 CDT Inactive 07/05/2017 [facility] Calcium Chloride 0.0014 MEQ/ML / Potassium Chloride 0.004 MEQ/ML / Sodium Chloride 0.103 MEQ/ML / Sodium Lactate 0.028 MEQ/ML Injectable Solution 1,000 mL, Rate: 25 ml/hr, Infuse over: 40 hr, Route: IV, Dosing Weight 90.727 kg, Total Volume: 1,000, Start date: 07/05/17 7:28:00 CDT, Duration: 30 day, Stop date: 08/04/17 7:27:00 CDT Inactive 07/05/2017 [facility] Ticagrelor 90 MG Oral Tablet [Brilinta] 90 mg=1 tab, PO, BID, 0 Refill(s) Active 07/02/2017 [facility] Nitroglycerin 0.4 MG Sublingual Tablet 0.4 mg=1 tab, SL, Q5Min, PRN Chest Pain, not to exceed 3 doses/15 min--if pain persists, seek medical attention; take blood pressure, if systolic BP Active 01/31/2017 [facility] ticagrelor 90 mg oral tablet 90 mg=1 tab, PO, Q12H, # 60 tab, 1 Refill(s) Active 01/31/2017 [facility] Tylenol 650 mg, 2 tab, Route: PO, Drug form: TAB, Q6H, Dosing Weight 95.455, kg, PRN For Temp > 100.4 F, Start date: 01/30/17 20:34:00 CARE DIRECTOR, Duration: 30 day, Stop date: 03/01/17 20:33:00 CDTNotes: Do not exceed 4 gm/day. (Same as: Tylenol) No Longer Active 01/31/2017 [facility] Miralax 17 gm, 1 pkt, Route: PO, Drug form: PWDR, Daily, Dosing Weight 95.455, kg, PRN Constipation, Start date: 01/30/17 20:34:00 CARE DIRECTOR, Duration: 30 day, Stop date: 03/01/17 20:33:00 CDTNotes: Dissolve in 8 oz of water or juice. (Same as: Miralax) No Longer Active 01/31/2017 [facility] Morphine 4 mg, 1 mL, Route: IVP, Drug form: INJ, Q4H, Dosing Weight 95.455, kg, PRN Pain Score 7-10, Start date: 01/30/17 10:52:00 CARE DIRECTOR, Duration: 30 day, Stop date: 03/01/17 10:51:00 CDTNotes: (Same as:MORPhine Sulfate) No Longer Active 01/30/2017 [facility] multivitamin with minerals 1 tab, Route: PO, Drug Form: TAB, Daily, Start date: 01/30/17 9:00:00 CARE DIRECTOR, Duration: 30 day, Stop date: 02/28/17 9:00:00 CDTNotes: Give with food. (Same As: Stress 600 with Zinc) WASTE: F/P - Black; E - [employer] Trash Bin No Longer Active 01/30/2017 [facility] multivitamin 1 tab, Route: PO, Dosing Weight 95.455, kg, Daily, Start date: 01/30/17 9:00:00 CARE DIRECTOR, Duration: 30 day, Stop date: 02/28/17 9:00:00 CDT No Longer Active 01/30/2017 [facility] Magnesium Oxide 200 mg, 0.5 tab, Route: PO, Drug form: TAB, Daily, Dosing Weight 95.455, kg, Start date: 01/30/17 9:00:00 CARE DIRECTOR, Duration: 30 day, Stop date: 02/28/17 9:00:00 CDTNotes: (Same as: Mag-Ox 400) Magnesium oxide 979fl=004gs elemental magnesium Dose=____mg magnesium oxide (___mg elemental magnesium) No Longer Active 01/30/2017 [facility] Claritin 10 mg, Route: PO, Drug form: TAB, Daily, Dosing Weight 95.455, kg, Start date: 01/30/17 9:00:00 CARE DIRECTOR, Duration: 30 day, Stop date: 02/28/17 9:00:00 CDT No Longer Active 01/30/2017 [facility] cetirizine 10 mg, 1 tab, Route: PO, Drug form: TAB, Daily, Start date: 01/30/17 9:00:00 CARE DIRECTOR, Duration: 30 day, Stop date: 02/28/17 9:00:00 CDTNotes: (Same As: Zyrtec) No Longer Active 01/30/2017 [facility] Ticagrelor 90 mg, 1 tab, Route: PO, Drug form: TAB, Q12H, Dosing Weight 95.455, kg, Start date: 01/30/17 9:00:00 CARE DIRECTOR, Duration: 30 day, Stop date: 02/28/17 21:00:00 CDTNotes: (Same as: Brilinta) No Longer Active 01/30/2017 [facility] Sodium Chloride 0.154 MEQ/ML Injectable Solution 750 mL, Rate: 75 ml/hr, Infuse over: 10 hr, Route: IV, Dosing Weight 95.455 kg, Total Volume: 750, Start date: 01/30/17 7:22:00 CARE DIRECTOR, Duration: 10 hr, Stop date: 01/30/17 17:21:00 CARE DIRECTOR Inactive 01/30/2017 [facility] Sodium Chloride 0.154 MEQ/ML Injectable Solution 750 mL, Rate: 75 ml/hr, Infuse over: 10 hr, Route: IV, Dosing Weight 95.455 kg, Total Volume: 750, Start date: 01/30/17 5:00:00 CARE DIRECTOR, Stop date: 01/30/17 8:05:03 CARE DIRECTOR Inactive 01/30/2017 [facility] Sodium Chloride 0.154 MEQ/ML Injectable Solution 250 mL, 250 ml/hr, Infuse Over: 1 hr, Route: IV, 250, Drug form: INJ, ONCALL, Priority: Routine, Dosing Weight 95.455 kg, Start date: 01/30/17 4:00:00 CARE DIRECTOR, Duration: 1 doses or times Inactive 01/30/2017 [facility] tamsulosin 0.4 mg, 1 cap, Route: PO, Drug form: CAP, Daily, Dosing Weight 95.455, kg, Start date: 01/29/17 23:06:00 CARE DIRECTOR, Duration: 30 day, Stop date: 02/28/17 21:00:00 CDTNotes: (Same As: Flomax) "Do Not Crush" No Longer Active 01/30/2017 [facility] 24 HR Metoprolol Tartrate 50 MG Extended Release Tablet [Toprol] 50 mg, 1 tab, Route: PO, Drug form: ERTAB, Daily, Start date: 01/29/17 21:00:00 CARE DIRECTOR, Duration: 30 day, Stop date: 02/28/17 9:00:00 CDTNotes: (Same as: Toprol XL) May split tab, but do not crush. No Longer Active 01/30/2017 [facility] Lisinopril 10 mg, 1 tab, Route: PO, Drug form: TAB, Daily, Dosing Weight 95.455, kg, Start date: 01/29/17 21:00:00 CARE DIRECTOR, Duration: 30 day, Stop date: 02/28/17 9:00:00 CDTNotes: (Same as: Prinivil, Zestril) No Longer Active 01/30/2017 [facility] atorvastatin 40 mg, 1 tab, Route: PO, Drug form: TAB, Bedtime, Dosing Weight 95.455, kg, Start date: 01/29/17 21:00:00 CARE DIRECTOR, Duration: 30 day, Stop date: 02/27/17 21:00:00 CDTNotes: (Same as: Lipitor) No Longer Active 01/30/2017 [facility] aspirin 81 mg tablet, enteric coated 81 mg, 1 tab, Route: PO, Drug form: ECTAB, Daily, Dosing Weight 95.455, kg, Start date: 01/29/17 21:00:00 CARE DIRECTOR, Duration: 30 day, Stop date: 02/28/17 9:00:00 CDTNotes: Do not crush or chew. (Same As: Ecotrin) No Longer Active 01/30/2017 [facility] Famotidine 20 mg, 1 tab, Route: PO, Drug form: TAB, Q12H, Dosing Weight 95.455, kg, Start date: 01/29/17 21:00:00 CARE DIRECTOR, Duration: 30 day, Stop date: 02/28/17 9:00:00 CDTNotes: (Same as: Pepcid) No Longer Active 01/30/2017 [facility] Melatonin 3 MG Extended Release Tablet 6 mg, 2 tab, Route: PO, Drug Form: TAB, Dosing Weight 95.455, kg, Bedtime, PRN Insomnia, Start date: 01/29/17 17:03:00 CARE DIRECTOR, Duration: 30 day, Stop date: 02/28/17 17:02:00 CDTNotes: (Same as: Melatonin) No Longer Active 01/29/2017 [facility] Nitroglycerin 0.4 mg, 1 tab, Route: SL, Drug form: TAB, Q5Min, Dosing Weight 95.455, kg, PRN Chest Pain, Start date: 01/29/17 17:00:00 CARE DIRECTOR, Duration: 3 doses or times, Stop date: Limited # of timesNotes: (Same as: Nitroquick, Nitrostat) "Do Not Crush" Sublingual tablet No Longer Active 01/29/2017 [facility] Diphenhydramine 25 mg, 1 tab, Route: PO, Drug form: TAB, Bedtime, Dosing Weight 95.455, kg, PRN Insomnia, Start date: 01/29/17 17:00:00 CARE DIRECTOR, Duration: 30 day, Stop date: 02/28/17 16:59:00 CDT No Longer Active 01/29/2017 [facility] Sodium Chloride 0.154 MEQ/ML Injectable Solution 750 mL, Rate: 75 ml/hr, Infuse over: 10 hr, Route: IV, Dosing Weight 95.455 kg, Total Volume: 750, Start date: 01/29/17 17:00:00 CARE DIRECTOR, Duration: 10 hr, Stop date: 01/30/17 2:59:00 CARE DIRECTOR No Longer Active 01/29/2017 [facility] Valium 5 mg, 1 tab, Route: PO, Drug form: TAB, PRE OP, Start date: 01/29/17 6:00:00 CARE DIRECTOR, Duration: 12 hr, Stop date: 01/29/17 17:59:00 CSTNotes: (Same as: Valium) Inactive 01/29/2017 [facility] sodium chloride 0.9% 1000 ml INJ 1,000 mL 1,000 mL, Rate: KVO, Rate: 0 ml/hr, Infuse over: 0, Route: IV, Dosing Weight 95.455 kg, Total Volume: 1,000, Start date: 01/29/17 6:00:00 CARE DIRECTOR, Duration: 12 hr, Stop date: 01/29/17 17:59:00 CARE DIRECTOR Inactive 01/29/2017 [facility] Sodium Chloride 0.154 MEQ/ML Injectable Solution 250 mL, 250 ml/hr, Infuse Over: 1 hr, Route: IV, 250, Drug form: INJ, ONCALL, Priority: Routine, Dosing Weight 95.455 kg, Start date: 01/29/17 6:00:00 CARE DIRECTOR, Duration: 1 doses or times Inactive 01/29/2017 [facility] Benadryl 50 mg, 2 tab, Route: PO, Drug form: TAB, PRE OP, Start date: 01/29/17 6:00:00 CARE DIRECTOR, Duration: 12 hr, Stop date: 01/29/17 17:59:00 CARE DIRECTOR Inactive 01/29/2017 [facility] Sodium Chloride 0.154 MEQ/ML Injectable Solution 750 mL, Rate: 75 ml/hr, Infuse over: 10 hr, Route: IV, Dosing Weight 95.455 kg, Total Volume: 750, Start date: 01/29/17 5:50:00 CARE DIRECTOR, Duration: 24 hr, Stop date: 01/30/17 5:49:00 CARE DIRECTOR Inactive 01/29/2017 [facility] 24 HR Metoprolol Tartrate 50 MG Extended Release Tablet [Toprol] 50 mg=1 tab, PO, Daily, # 30 tab, 1 Refill(s) Active 01/25/2017 [facility] atorvastatin 40 mg oral tablet 40 mg=1 tab, PO, Bedtime, # 90 tab, 0 Refill(s) Active 01/25/2017 [facility] Loratadine 10 MG Oral Tablet [Claritin] 10 mg=1 tab, PO, Daily, # 7 tab, 0 Refill(s) Active 01/25/2017 [facility] multivitamin 1 tab, PO, Daily, 0 Refill(s) Active 01/25/2017 [facility] Melatonin 3 MG Extended Release Tablet 6 mg=2 tab, PO, Bedtime, PRN for insomnia, # 14 tab, 0 Refill(s) Active 01/25/2017 [facility] magnesium oxide 250 mg oral tablet 250 mg=1 tab, PO, Daily, 0 Refill(s) Active 01/25/2017 [facility] aspirin 81 mg tablet, enteric coated 81 mg=1 tab, PO, Daily, # 90 tab, 3 Refill(s) Active 01/25/2017 [facility] tamsulosin 0.4 mg oral capsule 0.4 mg=1 cap, PO, Daily, # 30 cap, 0 Refill(s) Active 01/25/2017 [facility] lisinopril 10 mg oral tablet 10 mg=1 tab, PO, Daily, # 30 tab, 0 Refill(s) Active 01/25/2017 [facility]
--- OUTSIDE RECORDS SUMMARY | 2019-01-20 09:09 | XMS REPORT | Summary of Care ---
Author Author [facility] Organization [facility] Address Unknown Phone Unavailable Encounter TAYLOR Guzmán(YISSEL) [id number] Date(s): 01/29/17 - 01/31/17 [facility] [address] [place] [address]- Discharge Disposition: Home or Self Care Attending Physician: Mitali Pulido MD Referring Physician: Mitali Pulido MD Vital Signs 1 2 3 Most recent to oldest [Reference Range]: 175.26 cm (01/25/17 3:53 PM) Height 97.1 DegF (01/31/17 7:55 AM) 98.6 DegF (01/31/17 3:45 AM) 99.2 DegF *HI* (01/30/17 11:27 PM) Temperature Oral [96.4-99.1 DegF] 129/80 mmHg (01/31/17 7:55 AM) 111/67 mmHg (01/31/17 3:45 AM) 117/71 mmHg (01/30/17 11:27 PM) Blood Pressure [90-140/60-90 mmHg] 18 BRMIN (01/31/17 7:55 AM) 18 BRMIN (01/31/17 3:45 AM) 18 BRMIN (01/30/17 11:27 PM) Respiratory Rate [14-20 BRMIN] 86 bpm (01/31/17 7:55 AM) 75 bpm (01/31/17 3:45 AM) 80 bpm (01/30/17 11:27 PM) Peripheral Pulse Rate [60-100 bpm] 95.455 kg (01/25/17 3:53 PM) Weight 31.08 m2 (01/25/17 3:53 PM) Body Mass Index Problem List Condition Effective Dates Status Health Status Informant CAD (coronary artery Active disease)(Confirmed) Chest Active pain(Confirmed) Shortness of Active breath(Confirmed) HTN Active (hypertension)(Confi rmed) Arthritis(Confirmed) Active Enlarged Active prostate(Confirmed) Sleep Active apnea(Confirmed) Allergies, Adverse Reactions, Alerts Substance Reaction Severity Status finasteride Active Medications aspirin 81 mg tablet, enteric coated 81 mg, 1 tab, Route: PO, Drug form: ECTAB, Daily, Dosing Weight 95.455, kg, Star t date: 01/29/17 21:00:00 PROMOTIONS INTERN, Duration: 30 day, Stop date: 02/28/17 9:00:00 CDT Notes: Do not crush or chew.(Same As: Ecotrin) Start Date: 01/29/17 Stop Date: 01/31/17 Status: Discontinued aspirin 81 mg tablet, enteric coated 81 mg=1 tab, PO, Daily, # 90 tab, 3 Refill(s) Start Date: 01/25/17 Status: Ordered atorvastatin 40 mg, 1 tab, Route: PO, Drug form: TAB, Bedtime, Dosing Weight 95.455, kg, Star t date: 01/29/17 21:00:00 PROMOTIONS INTERN, Duration: 30 day, Stop date: 02/27/17 21:00:00 CD T Notes: (Same as: Lipitor) Start Date: 01/29/17 Stop Date: 01/31/17 Status: Discontinued atorvastatin 40 mg oral tablet 40 mg=1 tab, PO, Bedtime, # 90 tab, 0 Refill(s) Start Date: 01/25/17 Status: Ordered Benadryl 50 mg, 2 tab, Route: PO, Drug form: TAB, PRE OP, Start date: 01/29/17 6:00:00 CS T, Duration: 12 hr, Stop date: 01/29/17 17:59:00 PROMOTIONS INTERN Start Date: 01/29/17 Stop Date: 01/29/17 Status: Completed cetirizine 10 mg, 1 tab, Route: PO, Drug form: TAB, Daily, Start date: 01/30/17 9:00:00 PROMOTIONS INTERN , Duration: 30 day, Stop date: 02/28/17 9:00:00 CDT Notes: (Same As: Zyrtec) Start Date: 01/30/17 Stop Date: 01/31/17 Status: Discontinued Claritin 10 mg, Route: PO, Drug form: TAB, Daily, Dosing Weight 95.455, kg, Start date: 0 01/30/17 9:00:00 PROMOTIONS INTERN, Duration: 30 day, Stop date: 02/28/17 9:00:00 CDT Start Date: 01/30/17 Stop Date: 01/29/17 Status: Deleted Claritin 10 mg oral tablet 10 mg=1 tab, PO, Daily, # 7 tab, 0 Refill(s) Start Date: 01/25/17 Stop Date: 02/01/17 Status: Ordered diphenhydrAMINE 25 mg, 1 tab, Route: PO, Drug form: TAB, Bedtime, Dosing Weight 95.455, kg, PRN Insomnia, Start date: 01/29/17 17:00:00 PROMOTIONS INTERN, Duration: 30 day, Stop date: 16:59:00 CDT Start Date: 01/29/17 Stop Date: 01/31/17 Status: Discontinued famotidine 20 mg, 1 tab, Route: PO, Drug form: TAB, Q12H, Dosing Weight 95.455, kg, Start d ate: 01/29/17 21:00:00 PROMOTIONS INTERN, Duration: 30 day, Stop date: 02/28/17 9:00:00 CDT Notes: (Same as: Pepcid) Start Date: 01/29/17 Stop Date: 01/31/17 Status: Discontinued lisinopril 10 mg, 1 tab, Route: PO, Drug form: TAB, Daily, Dosing Weight 95.455, kg, Start date: 01/29/17 21:00:00 PROMOTIONS INTERN, Duration: 30 day, Stop date: 02/28/17 9:00:00 CDT Notes: (Same as: Prinivil, Zestril) Start Date: 01/29/17 Stop Date: 01/31/17 Status: Discontinued lisinopril 10 mg oral tablet 10 mg=1 tab, PO, Daily, # 30 tab, 0 Refill(s) Start Date: 01/25/17 Status: Ordered magnesium oxide 200 mg, 0.5 tab, Route: PO, Drug form: TAB, Daily, Dosing Weight 95.455, kg, Sta rt date: 01/30/17 9:00:00 PROMOTIONS INTERN, Duration: 30 day, Stop date: 02/28/17 9:00:00 CDT Notes: (Same as: Mag-Ox 400)Magnesium oxide [id number] elemental magnesiumDose= ____mg magnesium oxide (___mg elemental magnesium) Start Date: 01/30/17 Stop Date: 01/31/17 Status: Discontinued magnesium oxide 250 mg oral tablet 250 mg=1 tab, PO, Daily, 0 Refill(s) Start Date: 01/25/17 Status: Ordered melatonin 3 mg oral tablet 6 mg, 2 tab, Route: PO, Drug Form: TAB, Dosing Weight 95.455, kg, Bedtime, PRN I nsomnia, Start date: 01/29/17 17:03:00 PROMOTIONS INTERN, Duration: 30 day, Stop date: 7 17:02:00 CDT Notes: (Same as: Melatonin) Start Date: 01/29/17 Stop Date: 01/31/17 Status: Discontinued melatonin 3 mg oral tablet 6 mg=2 tab, PO, Bedtime, PRN for insomnia, # 14 tab, 0 Refill(s) Start Date: 01/25/17 Stop Date: 02/08/17 Status: Ordered MiraLax 17 gm, 1 pkt, Route: PO, Drug form: PWDR, Daily, Dosing Weight 95.455, kg, PRN C onstipation, Start date: 01/30/17 20:34:00 PROMOTIONS INTERN, Duration: 30 day, Stop date: 06/10 20:33:00 CDT Notes: Dissolve in 8 oz of water or juice.(Same as: Miralax) Start Date: 01/30/17 Stop Date: 01/31/17 Status: Discontinued morphine Sulfate 4 mg, 1 mL, Route: IVP, Drug form: INJ, Q4H, Dosing Weight 95.455, kg, PRN Pain Score 7-10, Start date: 01/30/17 10:52:00 PROMOTIONS INTERN, Duration: 30 day, Stop date: 06/10 10:51:00 CDT Notes: (Same as:MORPhine Sulfate) Start Date: 01/30/17 Stop Date: 01/31/17 Status: Discontinued multivitamin 1 tab, Route: PO, Dosing Weight 95.455, kg, Daily, Start date: 01/30/17 9:00:00 PROMOTIONS INTERN, Duration: 30 day, Stop date: 02/28/17 9:00:00 CDT Start Date: 01/30/17 Stop Date: 01/29/17 Status: Deleted multivitamin 1 tab, PO, Daily, 0 Refill(s) Start Date: 01/25/17 Status: Ordered multivitamin with minerals 1 tab, Route: PO, Drug Form: TAB, Daily, Start date: 01/30/17 9:00:00 PROMOTIONS INTERN, Durat ion: 30 day, Stop date: 02/28/17 9:00:00 CDT Notes: Give with food.(Same As: Stress 600 with Zinc)WASTE: F/P - Black; E - Ren icipal Trash Bin Start Date: 01/30/17 Stop Date: 01/31/17 Status: Discontinued nitroglycerin 0.4 mg sublingual tablet 0.4 mg=1 tab, SL, Q5Min, PRN Chest Pain, not to exceed 3 doses/15 min--if pain p ersists, seek medical attention; take blood pressure, if systolic BP </=100 call 911, # 30 tab, 0 Refill(s) Start Date: 01/31/17 Status: Ordered nitroglycerin SL Tab 0.4 mg, 1 tab, Route: SL, Drug form: TAB, Q5Min, Dosing Weight 95.455, kg, PRN C hest Pain, Start date: 01/29/17 17:00:00 PROMOTIONS INTERN, Duration: 3 doses or times, Stop d ate: Limited # of times Notes: (Same as:Nitroquick, Nitrostat)"Do Not Crush" Sublingual tablet Start Date: 01/29/17 Stop Date: 01/31/17 Status: Discontinued Sodium Chloride 0.9% (Bolus) IV 250 mL, 250 ml/hr, Infuse Over: 1 hr, Route: IV, 250, Drug form: INJ, ONCALL, Pr iority: Routine, Dosing Weight 95.455 kg, Start date: 01/29/17 6:00:00 PROMOTIONS INTERN, Dura tion: 1 doses or times Start Date: 01/29/17 Stop Date: 01/29/17 Status: Completed sodium chloride 0.9% 1000 ml INJ 1,000 mL 1,000 mL, Rate: KVO, Rate: 0 ml/hr, Infuse over: 0, Route: IV, Dosing Weight 95. 455 kg, Total Volume: 1,000, Start date: 01/29/17 6:00:00 PROMOTIONS INTERN, Duration: 12 hr, Stop date: 01/29/17 17:59:00 PROMOTIONS INTERN Start Date: 01/29/17 Stop Date: 01/29/17 Status: Canceled sodium chloride 0.9% 1000 ml INJ 750 mL 750 mL, Rate: 75 ml/hr, Infuse over: 10 hr, Route: IV, Dosing Weight 95.455 kg, Total Volume: 750, Start date: 01/30/17 7:22:00 PROMOTIONS INTERN, Duration: 10 hr, Stop date: 01/30/17 17:21:00 PROMOTIONS INTERN Start Date: 01/30/17 Stop Date: 01/30/17 Status: Completed sodium chloride 0.9% 1000 ml INJ 750 mL 750 mL, Rate: 75 ml/hr, Infuse over: 10 hr, Route: IV, Dosing Weight 95.455 kg, Total Volume: 750, Start date: 01/29/17 5:50:00 PROMOTIONS INTERN, Duration: 24 hr, Stop date: 01/30/17 5:49:00 PROMOTIONS INTERN Start Date: 01/29/17 Stop Date: 01/29/17 Status: Discontinued sodium chloride 0.9% 1000 ml INJ 750 mL 750 mL, Rate: 75 ml/hr, Infuse over: 10 hr, Route: IV, Dosing Weight 95.455 kg, Total Volume: 750, Start date: 01/30/17 5:00:00 PROMOTIONS INTERN, Stop date: 01/30/17 8:05:03 PROMOTIONS INTERN Start Date: 01/30/17 Stop Date: 01/30/17 Status: Completed sodium chloride 0.9% 1000 ml INJ 750 mL 750 mL, Rate: 75 ml/hr, Infuse over: 10 hr, Route: IV, Dosing Weight 95.455 kg, Total Volume: 750, Start date: 01/29/17 17:00:00 PROMOTIONS INTERN, Duration: 10 hr, Stop date : 01/30/17 2:59:00 PROMOTIONS INTERN Start Date: 01/29/17 Stop Date: 01/30/17 Status: Completed Sodium Chloride 0.9% IV (Sodium Chloride 0.9% (Bolus) IV) 250 mL, 250 ml/hr, Infuse Over: 1 hr, Route: IV, 250, Drug form: INJ, ONCALL, Pr iority: Routine, Dosing Weight 95.455 kg, Start date: 01/30/17 4:00:00 PROMOTIONS INTERN, Dura tion: 1 doses or times Start Date: 01/30/17 Stop Date: 01/30/17 Status: Completed tamsulosin 0.4 mg, 1 cap, Route: PO, Drug form: CAP, Daily, Dosing Weight 95.455, kg, Start date: 01/29/17 23:06:00 PROMOTIONS INTERN, Duration: 30 day, Stop date: 02/28/17 21:00:00 CDT Notes: (Same As: Flomax) "Do Not Crush" Start Date: 01/29/17 Stop Date: 01/31/17 Status: Discontinued tamsulosin 0.4 mg oral capsule 0.4 mg=1 cap, PO, Daily, # 30 cap, 0 Refill(s) Start Date: 01/25/17 Status: Ordered ticagrelor 90 mg, 1 tab, Route: PO, Drug form: TAB, Q12H, Dosing Weight 95.455, kg, Start d ate: 01/30/17 9:00:00 PROMOTIONS INTERN, Duration: 30 day, Stop date: 02/28/17 21:00:00 CDT Notes: (Same as: Brilinta) Start Date: 01/30/17 Stop Date: 01/31/17 Status: Discontinued ticagrelor 90 mg oral tablet 90 mg=1 tab, PO, Q12H, # 60 tab, 1 Refill(s) Start Date: 01/31/17 Status: Ordered Toprol-XL 50 mg oral tablet, extended release 50 mg=1 tab, PO, Daily, # 30 tab, 1 Refill(s) Start Date: 01/25/17 Status: Ordered Toprol-XL 50 mg oral tablet, extended release 50 mg, 1 tab, Route: PO, Drug form: ERTAB, Daily, Start date: 01/29/17 21:00:00 PROMOTIONS INTERN, Duration: 30 day, Stop date: 02/28/17 9:00:00 CDT Notes: (Same as: Toprol XL) May split tab, but do not crush. Start Date: 01/29/17 Stop Date: 01/31/17 Status: Discontinued Tylenol 650 mg, 2 tab, Route: PO, Drug form: TAB, Q6H, Dosing Weight 95.455, kg, PRN For Temp > 100.4 F, Start date: 01/30/17 20:34:00 PROMOTIONS INTERN, Duration: 30 day, Stop date: 03/01/17 20:33:00 CDT Notes: Do not exceed 4 gm/day. (Same as: Tylenol) Start Date: 01/30/17 Stop Date: 01/31/17 Status: Discontinued Valium 5 mg, 1 tab, Route: PO, Drug form: TAB, PRE OP, Start date: 01/29/17 6:00:00 PROMOTIONS INTERN , Duration: 12 hr, Stop date: 01/29/17 17:59:00 PROMOTIONS INTERN Notes: (Same as: Valium) Start Date: 01/29/17 Stop Date: 01/29/17 Status: Completed Results ELECTROLYTES 1 2 3 Most recent to oldest [Reference Range]: 143 mEq/L (01/25/17 4:14 PM) Sodium Lvl [135-145 mEq/L] 3.6 mEq/L (01/25/17 4:14 PM) Potassium Lvl [3.5-5.1 mEq/L] 107 mEq/L (01/25/17 4:14 PM) Chloride Lvl [95-109 mEq/L] 29 mEq/L (01/25/17 4:14 PM) CO2 [24-32 mEq/L] 10.6 mEq/L (01/25/17 4:14 PM) AGAP [10.0-20.0 mEq/L] CHEM PANEL 1 2 3 Most recent to oldest [Reference Range]: 1.03 mg/dL (01/31/17 5:01 AM) 1.01 mg/dL (01/30/17 3:50 AM) 0.98 mg/dL (01/25/17 4:14 PM) Creatinine Lvl [0.50-1.40 mg/dL] 79 mL/min/1.73m2 1 *NA* (01/31/17 5:01 AM) 80 mL/min/1.73m2 2 *NA* (01/30/17 3:50 AM) 83 mL/min/1.73m2 3 *NA* (01/25/17 4:14 PM) eGFR 11 mg/dL (01/25/17 4:14 PM) BUN [7-22 mg/dL] 78 mg/dL (01/25/17 4:14 PM) Glucose Lvl [70-99 mg/dL] 8.9 mg/dL (01/25/17 4:14 PM) Calcium Lvl [8.5-10.5 mg/dL] 1Result Comment: The eGFR is calculated using [...] be mul tiplied by the estimated BMI. 3Result Comment: The eGFR is calculated using the [...] mul tiplied by the estimated BMI. HEMATOLOGY 1 2 3 Most recent to oldest [Reference Range]: 8.8 K/CMM (01/31/17 5:01 AM) 8.2 K/CMM (01/30/17 3:50 AM) 8.6 K/CMM (01/25/17 4:14 PM) WBC [3.7-10.4 K/CMM] 4.01 M/CMM *LOW* (01/31/17 5:01 AM) 4.24 M/CMM *LOW* (01/30/17 3:50 AM) 4.73 M/CMM (01/25/17 4:14 PM) RBC [4.70-6.10 M/CMM] 12.5 g/dL *LOW* (01/31/17 5:01 AM) 13.2 g/dL *LOW* (01/30/17 3:50 AM) 14.7 g/dL (01/25/17 4:14 PM) Hgb [14.0-18.0 g/dL] 36.9 % *LOW* (01/31/17 5:01 AM) 38.5 % *LOW* (01/30/17 3:50 AM) 42.9 % (01/25/17 4:14 PM) Hct [42.0-54.0 %] 92.2 fL (01/31/17 5:01 AM) 90.8 fL (01/30/17 3:50 AM) 90.6 fL (01/25/17 4:14 PM) MCV [80.0-94.0 fL] 31.1 pg *HI* (01/31/17 5:01 AM) 31.1 pg *HI* (01/30/17 3:50 AM) 31.1 pg *HI* (01/25/17 4:14 PM) MCH [27.0-31.0 pg] 33.7 g/dL (01/31/17 5:01 AM) 34.2 g/dL (01/30/17 3:50 AM) 34.3 g/dL (01/25/17 4:14 PM) MCHC [32.0-36.0 g/dL] 13.4 % (01/31/17 5:01 AM) 13.4 % (01/30/17 3:50 AM) 13.3 % (01/25/17 4:14 PM) RDW [11.5-14.5 %] 188 K/CMM (01/31/17 5:01 AM) 199 K/CMM (01/30/17 3:50 AM) 231 K/CMM (01/25/17 4:14 PM) Platelet [133-450 K/CMM] 8.6 fL (01/31/17 5:01 AM) 8.4 fL (01/30/17 3:50 AM) 8.6 fL (01/25/17 4:14 PM) MPV [7.4-10.4 fL] 65.5 % (01/31/17 5:01 AM) 65.2 % (01/30/17 3:50 AM) 69.1 % (01/25/17 4:14 PM) Segs [45.0-75.0 %] 22.5 % (01/31/17 5:01 AM) 23.8 % (01/30/17 3:50 AM) 21.2 % (01/25/17 4:14 PM) Lymphocytes [20.0-40.0 %] 10.0 % (01/31/17 5:01 AM) 8.6 % (01/30/17 3:50 AM) 7.2 % (01/25/17 4:14 PM) Monocytes [2.0-12.0 %] 1.9 % (01/31/17 5:01 AM) 2.4 % (01/30/17 3:50 AM) 2.4 % (01/25/17 4:14 PM) Eosinophils [0.0-4.0 %] 0.1 % (01/31/17 5:01 AM) 0.1 % (01/25/17 4:14 PM) Basophils [0.0-1.0 %] 5.8 K/CMM (01/31/17 5:01 AM) 5.4 K/CMM (01/30/17 3:50 AM) 5.9 K/CMM (01/25/17 4:14 PM) Segs-Bands # [1.5-8.1 K/CMM] 2.0 K/CMM (01/31/17 5:01 AM) 2.0 K/CMM (01/30/17 3:50 AM) 1.8 K/CMM (01/25/17 4:14 PM) Lymphocytes # [1.0-5.5 K/CMM] 0.9 K/CMM *HI* (01/31/17 5:01 AM) 0.7 K/CMM (01/30/17 3:50 AM) 0.6 K/CMM (01/25/17 4:14 PM) Monocytes # [0.0-0.8 K/CMM] 0.2 K/CMM (01/31/17 5:01 AM) 0.2 K/CMM (01/30/17 3:50 AM) 0.2 K/CMM (01/25/17 4:14 PM) Eosinophils # [0.0-0.5 K/CMM] 13.0 seconds (01/25/17 4:14 PM) PT [12.0-14.7 seconds] 0.96 (01/25/17 4:14 PM) INR [0.85-1.17] 42.8 seconds *HI* (01/25/17 4:14 PM) PTT [22.9-35.8 seconds] Immunizations No data available for this section Procedures Procedure Date Related Diagnosis Body Site Arthroscopic knee procedure1 11/25/07 1left knee Social History Social History Type Response Alcohol Never, Previous treatment: None. Smoking Status Never smoker; Exposure to Tobacco Smoke None; Cigarette Smoking Last 365 Days No; Reg Smoking Cessation Counseling Yes Assessment and Plan Extracted from: Title: Progress Note * Author: Bina Daley ELECTRIC POWERLINE EXAMINER Date: 01/31/17 Impression and Plan 1. CAD s/p PCI LAD and RCA - pt recieved IVF pre/post intervention, creatinine and Hgb stable post procedure; pt has ambulated in the hallway without chest or bilateral groin pain; discussed with the patient care of the right and left groin including monitoring for s/s of infection such as fever, chills, drainage or redness at the site, he has been advised not to apply lotions, creams, powders or bandaids to the site, not to submerge in water for 5-7 days and keep the area clean and dry; he is not to do any heavy lifting over 10 pounds for the next 7-10 days and if bleeding occurs he is instructed to hold pressure above the skin site for 10 minutes, if the bleeding continues, he will continue holding pressure and immediate medical attention; he is advised to hold light pressure above the skin site before coughing, sneezing or during valsalva for the next 3-5 days; he will return for a staged intervention of the CFX lesion in approximately 2 weeks, continue ASA, Brilinta, Metoprolol and Lipitor, will send patient home with SL NTG and instructions on its use has been explained to the patient; f/u with Dr. Pulido in 2 weeks to scheduled staged intervention; the benefits of Cardiac Rehab Phase II has been explained to the patient and a list has been presented to the patient for his selection 2. HTN - well controlled on current medical management 3. HLD - continue statin HOME MEDICATIONS: please see the home medication reconciliation form for a complete list of medications
--- OUTSIDE RECORDS SUMMARY | 2019-01-20 09:09 | XMS REPORT | Summary of Care ---
Author Author Nikole Jang R.N. Organization Unknown Address Unknown Phone Unavailable Care Team Providers Care Plumbing Instructor Name Role Phone Nikole Jang R.N. Unavailable Unavailable DAVID ALCANTAR M.D. 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 * Start : 14-Jun-2017 Active Metoprolol Succinate ER 50 MG Oral Tablet Extended Release 24 Hour TAKE 1 TABLET DAILY. * Refills: 0 * Start : 14-Jun-2017 Active Atorvastatin Calcium 40 MG Oral Tablet TAKE 1 TABLET DAILY. * Refills: 0 * Start : 14-Jun-2017 Active 90 Tablet Bottle Brilinta 90 MG Oral Tablet TAKE 1 TABLET TWICE DAILY. * Refills: 0 * Start : 14-Jun-2017 Active Meloxicam 7.5 MG Oral Tablet TAKE 1 TABLET TWICE DAILY. * Quantity: 60 Refills: 1 DAVID ALCANTAR M.D. * Start : 12-Jul-2017 Active Allergies and Adverse Reactions Name Dates Details finasteride (Allergy) Status: Active Procedures Procedure Dates Details Procedures not documented Immunization Name Dates Details Immunizations not documented Social History Name Dates Details Unknown if ever smoked Vital Signs Date Test Result Details No Known Vitals to report Results Date Description Value Details Results not documented Plan of Care Name Dates Details Planned Observations Planned Goals not documented Interventions Provided Discussion/Summary* Guideline Used: * Other: Clinic question * Recommended Disposition: Call back for further assistance needed * Action Taken: * Patient informed/educated about nurse line * Intended Caller Action: * Other: Receive fax number * Additional Information: * Patient verbalized understandings of this call and agree to the recommended disposition at this time. Patient was also educated on nurse triage line use & encouraged to call back for symptom support or additional home care advice and/or go to the nearest Emergency Room or call 911 if patient condition has worsened to a medical emergency. Instructions Name Dates Details Instructions not documented Encounters Appointment; DAVID ALCANTAR M.D. Encounter Diagnosis: Problem not documented On: 14-Jun-2017 8:00 Appointment; DAVID ALCANTAR M.D. Encounter Diagnosis: Problem not documented On: 05-Jul-2017 8:30 Appointment; DAVID ALCANTAR M.D. Encounter Diagnosis: Problem not documented On: 12-Jul-2017 9:30 Appointment; DAVID ALCANTAR M.D. Encounter Diagnosis: Problem not documented On: 26-Jul-2017 9:30 Appointment; DAVID ALCANTAR M.D. Encounter Diagnosis: Problem not documented On: 02-Aug-2017 9:15 Appointment; DAVID ALCANTAR M.D. Encounter Diagnosis: Problem not documented On: 25-Oct-2017 8:30
--- OUTSIDE RECORDS SUMMARY | 2019-01-20 09:09 | XMS REPORT | Summary of Care ---
Author Author [facility] [place] Organization [facility] [place] Address Unknown Phone Unavailable Encounter HQ Faye_cara(FIN) [id number] Date(s): 06/19/17 - 06/19/17 [facility] Outpatient Imaging [facility] [address], [place], [place] [address] [id number] Discharge Disposition: Home or Self Care Attending Physician: Yasir Zamarripa MD Vital Signs No data available for this section Problem List Condition Effective Dates Status Health Status Informant CAD (coronary artery Active disease)(Confirmed) Chest Active pain(Confirmed) Shortness of Active breath(Confirmed) HTN Active (hypertension)(Confi rmed) Arthritis(Confirmed) Active Enlarged Active prostate(Confirmed) Sleep Active apnea(Confirmed) Allergies, Adverse Reactions, Alerts Substance Reaction Severity Status finasteride Active Medications No data available for this section Results No data available for this section Immunizations No data available for this section Procedures Procedure Date Related Diagnosis Body Site Arthroscopic knee procedure1 11/25/07 1left knee Social History Social History Type Response Alcohol Never, Previous treatment: None. Smoking Status Never smoker; Exposure to Tobacco Smoke None; Cigarette Smoking Last 365 Days No; Reg Smoking Cessation Counseling Yes Assessment and Plan No data available for this section
[2019-01-20 14:15] VITALS: BP 132/67
== END | disposition home or self-care (01) ==
LOC: OR 09:06
PROVIDERS: ATTEND Internal Medicine Gastroenterology
DX: Z79.01 Long term (current) use of anticoagulants (principal); D12.0 Benign neoplasm of cecum; D12.2 Benign neoplasm of ascending colon; D12.3 Benign neoplasm of transverse colon; K64.8 Other hemorrhoids; E78.2 Mixed hyperlipidemia; I83.90 Asymptomatic varicose veins of unspecified lower extremity; I70.213 Atherosclerosis of native arteries of extremities with intermittent claudication, bilateral legs; I25.10 Atherosclerotic heart disease of native coronary artery without angina pectoris; Z95.5 Presence of coronary angioplasty implant and graft; G47.30 Sleep apnea, unspecified; Z79.02 Long term (current) use of antithrombotics/antiplatelets; Z79.82 Long term (current) use of aspirin; N40.0 Benign prostatic hyperplasia without lower urinary tract symptoms
CPT/HCPCS: 36415; 45384; 45385; 85025; 93005; J2250; J2704

== ENCOUNTER → 2020-10-18 | Day surgery (SDC) | payer BC, OTHER ==
[2020-10-14 16:04] LABS: BASOPHILS % 0.1 % (0.0-1.0); EOSINOPHILS % 0.3 % (0.0-6.0); HEMATOCRIT 41.2 % (38.2-49.6); HEMOGLOBIN 13.9 g/dL (14.0-18.0); LYMPHOCYTES % 29.1 % (18.0-39.1); MEAN CORPUSCULAR HEMOGLOBIN 31.4 pg (28-32); MEAN CORPUSCULAR HGB CONC 33.7 g/dL (31-35); MEAN CORPUSCULAR VOLUME 93.2 fL (81-99); MONOCYTES # (AUTO) 0.6 (0.2-0.8); MONOCYTES % 8.2 % (4.4-11.3); NEUTROPHILS # (AUTO) 4.2 (2.1-6.9); PLATELET COUNT 224 x10e3/uL (140-360); RED BLOOD COUNT 4.42 x10e6/uL (4.3-5.7); RED CELL DISTRIBUTION WIDTH 12.4 % (11.7-14.4)
[~2020-10-18] MED LIST changes: +ACIDOPHILUS1 EAC1 PO; +CLONAZEPAM0.5 MG PO; +DOXEPIN HCL25 MG PO; -FENTANYL CITRATE/PF 100MCG/2 ML INJ ONE; +MAGNESIUM OXID400 MG PO; +MULTI-VITAMIN1 EACH PO; +PROPOFOL IV EMULSION 10 MG/ML 20 ML VIAL ONE; -PROPOFOL IV EMULSION 10 MG/ML 50 ML VIAL ONE; +PROTONIX20 MG PO; +SERTRALINE HCL25 MG PO
[2020-10-18 17:55] VITALS: BP 130/77
== END | disposition home or self-care (01) ==
LOC: OR 13:25
PROVIDERS: ATTEND Internal Medicine Gastroenterology
DX: K21.9 Gastro-esophageal reflux disease without esophagitis (principal); D12.5 Benign neoplasm of sigmoid colon; K31.7 Polyp of stomach and duodenum; K29.70 Gastritis, unspecified, without bleeding; K29.80 Duodenitis without bleeding; K44.9 Diaphragmatic hernia without obstruction or gangrene; K20.90 Esophagitis, unspecified without bleeding; K57.30 Diverticulosis of large intestine without perforation or abscess without bleeding; K59.00 Constipation, unspecified; K64.8 Other hemorrhoids; G47.33 Obstructive sleep apnea (adult) (pediatric); I25.10 Atherosclerotic heart disease of native coronary artery without angina pectoris; I10 Essential (primary) hypertension; E78.5 Hyperlipidemia, unspecified; F41.9 Anxiety disorder, unspecified; R31.9 Hematuria, unspecified; Z88.8 Allergy status to other drugs, medicaments and biological substances; Z01.812 Encounter for preprocedural laboratory examination; Z20.828 Contact with and (suspected) exposure to other viral communicable diseases; Z79.82 Long term (current) use of aspirin; Z79.02 Long term (current) use of antithrombotics/antiplatelets; Z79.1 Long term (current) use of non-steroidal anti-inflammatories (NSAID); Z86.2 Personal history of diseases of the blood and blood-forming organs and certain disorders involving the immune mechanism
CPT/HCPCS: 36415; 43239; 45384; 85025; J2250; J2704; U0002; 45378